=== PATIENT | female | born 1985 | race Caucasian/White ===

== ENCOUNTER 2018-06-18 09:10 | Day surgery (SDC) | payer OTHER ==
[2018-06-16 13:47] LABS: BASOPHILS # (AUTO) 0.1 X10'3 (0-0.2); BASOPHILS % (AUTO) 1.1 % (0-1); EOSINOPHILS # (AUTO) 0.5 X10'3 (0-0.9); EOSINOPHILS % (AUTO) 9.6 % (0-6); LYMPHOCYTES # (AUTO) 2.1 X10'3 (1.1-4.8); LYMPHOCYTES % (AUTO) 40.2 % (21-51); MEAN CORPUSCULAR HEMOGLOBIN 29.8 PG (27.0-31.0); MEAN CORPUSCULAR HGB CONC 33.1 g/dL (33.0-36.5); MEAN PLATELET VOLUME 9.8 FL (7.4-10.4); MONOCYTES # (AUTO) 0.4 X10'3 (0-0.9); MONOCYTES % (AUTO) 8.5 % (2-12); NEUTROPHILS # (AUTO) 2.1 X10'3 (1.8-7.7); NEUTROPHILS % (AUTO) 40.6 % (42-75); PRE OP HEMATOCRIT 37.4 % (35.0-45.0); PRE OP HEMOGLOBIN 12.4 g/dL (12.0-16.0); PRE OP PLATELET COUNT 215 X10'3 (140-440); RED BLOOD COUNT 4.15 X10'6 (4.20-5.60); RED CELL DISTRIBUTION WIDTH 12.9 % (11.5-14.5)
[2018-06-16 14:05] LABS: ALBUMIN 3.6 G/DL (3.4-5.0); ALKALINE PHOSPHATASE 110 IU/L (46-116); BLOOD UREA NITROGEN 23 MG/DL (7-18); BUN/CREATININE RATIO 20.7 (6.6-38.0); CALCIUM 9.4 MG/DL (8.5-10.1); CHLORIDE 108 MMOL/L (99-107); CREATININE 1.11 MG/DL (0.40-0.90); PRE OP ALT 24 U/L (30-65); PRE OP ANION GAP 11 (8-16); PRE OP AST 16 U/L (10-37); PRE OP BILIRUB, TOTAL 0.4 MG/DL (0.0-1.0); PRE OP GLUCOSE 100 MG/DL (70-104); PRE OP POTASSIUM 3.9 MMOL/L (3.4-5.1); PRE OP SODIUM 144 MMOL/L (135-145); TOTAL CARBON DIOXIDE 25.2 MMOL/L (24-32); TOTAL PROTEIN 7.3 G/DL (6.4-8.2); eGFR 58 ML/MIN
[2018-06-16 14:23] LABS: HCG SERUM QL NEGATIVE
[2018-06-18] VITALS (13 sets, daily range): BP systolic 123–148; BP diastolic 73–96
[~2018-06-18] VITALS: Ht 170.2 cm; Wt 88.3 kg
[~2018-06-18 09:10] MED LIST: IBUP-1984 PO; ceFAZolin 2gm in dextrose, iso 100 ML IV ONE; famotidine 20mg tablet PO ONE; ringers solution, lacted 1,000 ML IV SCH
[2018-06-18] MEDS ORDERED: BUPIVAcaine/PF 2.5mg/ml (0.25%) 10ml vial ONE (12:14)
[2018-06-18] MEDS ORDERED: sevoflurane 250ml liquid IH ONE (12:39)
[2018-06-18] MEDS ORDERED: fentaNYL/PF 50MCG/1 ML 2ML syringe ONE (12:41)
[2018-06-18] MEDS ORDERED: midazolam 2 mg/2 ml injection ONE (12:41)
[2018-06-18] MEDS ORDERED: ringers solution, lacted 1,000 ML IV SCH (13:09)
[2018-06-18] MEDS ORDERED: ondansetron/PF 4mg/2ml inj IV PRN (13:10)
[2018-06-18] MEDS ORDERED: morphine 4 MG/ML inj SYRINge IV PRN ×2 (13:10)
[2018-06-18] MEDS ORDERED: proCHLORperazine 10 MG/2 ml inj IV PRN (13:10)
[2018-06-18] MEDS ORDERED: meperidine/PF 25mg/ml syringe IV PRN ×3 (13:10)
[2018-06-18] MEDS ORDERED: ondansetron/PF 4mg/2ml inj ONE (13:16)
[2018-06-18] MEDS ORDERED: neostigmine methylsulfate 1 MG/ML 10ml vial ONE (13:16)
[2018-06-18] MEDS ORDERED: dexamethasone sod phosphate 4mg/ml inj. ONE (13:16)
[2018-06-18] MEDS ORDERED: rocuronium 10mg/ml inj IV ONE (13:16)
[2018-06-18] MEDS ORDERED: LIDOcaine 2% (20mg/ml) 5ml vial ONE (13:16)
[2018-06-18] MEDS ORDERED: propofol inj 20 ML IV ONE (13:16)
[2018-06-18] MEDS ORDERED: glycopyrrolate 0.2mg/ml inj ONE (13:16)
--- NOTE | 2018-06-18 13:39 | NUR ---
Received from OR via [facility], accompanied by Anesthesiologist DR RICH and report given by Anesthesiologist. PT DROWSY, DENIES PAIN, UMBILICAL LAP SITE W/DRSG CDI, EFREN PAD IN PLACE CDI. Addendum: 06/18/18 at 1424 by Shannan Webster RN Amended: Links added.
--- NOTE | 2018-06-18 15:29 | NUR ---
DISCHARGE INSTRUCTIONS GONE OVER AND GIVEN TO PT, PT VERBALIZES UNDERSTANDING, PT UP TO BATHROOM FOR VOID, D/CD TO HOME W/. Addendum: 06/18/18 at 1542 by Shannan Webster RN Amended: Links added.
== END 2018-06-18 15:29 | disposition home or self-care (01) ==
LOC: PAS 09:10
PROVIDERS: ATTEND Obstetrics & Gynecology
DX: Z30.2 Encounter for sterilization (principal); N18.9 Chronic kidney disease, unspecified; Z98.890 Other specified postprocedural states; Z72.89 Other problems related to lifestyle; Z88.0 Allergy status to penicillin
CPT/HCPCS: 36415; 58670; 80053; 82948; 84703; 85025; A6258; A6402; J0690; J1100; J2001; J2175; J2250; J2405; J2704; J2710; J3010; J3490; J7120; A7000